=== PATIENT | male | born 1960 | race Caucasian/White ===

== ENCOUNTER 2023-09-19 11:24 | Emergency (ER) | payer OTHER, SELFPAY ==
[2023-09-19 11:28] VITALS: BP 148/76; PULSE 69; RESP 16; TEMP 36.1; O2SAT 100; BMI 25.1
--- NOTE | 2023-09-19 11:31 | DI.CT.S_ITS ---
PROCEDURE: CT KIDNEY URETER BLADDER (KUB) INDICATIONS: R FLANK PAIN, HX RENAL STONES TECHNIQUE: Axial sections were acquired from the lung bases to the pubic symphysis. Coronal and sagittal reformats were performed. For radiation dose reduction, the following was used: automated exposure control, adjustment of mA and/or kV according to patient size. COMPARISON: None. FINDINGS: Lower thorax: The lung bases are clear. Heart size normal. No hiatal hernia. Liver: 1.5 cm hepatic cysts present. No focal mass lesion Biliary system: No calcified cholelithiasis or pericholecystic inflammation. No intra or extrahepatic bile duct dilatation. Pancreas: Unremarkable without mass or inflammation evident. Spleen: Several calcified granulomas Adrenals: Normal morphology and density. Reproductive system: Unremarkable as visualized. Urinary system: 2- 3 mm nonobstructive right renal calculi present. No hydronephrosis or hydroureter bilaterally. Gastrointestinal system: The bowel is unremarkable without evidence of bowel obstruction or inflammation. The stomach appears unremarkable. Appendix: Normal appendix identified. No evidence of appendicitis. Peritoneal spaces: No mesenteric or retroperitoneal adenopathy. No free air. No free fluid. Vasculature: The IVC, aorta and iliac vasculature are unremarkable. Abdominal wall: Left inguinal hernia(s) contain fat without bowel involvement. Musculoskeletal: Normal bone mineralization. Degenerative disc disease and arthropathy noted in lower lumbar spine. No acute fractures. IMPRESSION: 1. No acute CT findings in abdomen and pelvis. 2. Nonobstructive right renal calculi. No hydronephrosis. Normal appendix. Approved by: Julio Hernandez M.D. on 09/19/2023 at 12:03
[2023-09-19] MEDS: SODIUM CHLORIDE 0.9% 1,000 ML 1000 ML IV (11:47)
[2023-09-19 11:48] LABS: Add Manual Diff / Slide Review NO; Basophils Absolute Auto 0 /uL (0-100); Basophils Percent Auto 0.3 % (0-2); Eosinophils Absolute Auto 0 /uL (0-450); Eosinophils Percent Auto 0.1 % (2-4); Hematocrit 45.5 % (41-53); Hemoglobin 15.4 g/dL (13.5-17.5); Lymphocytes Absolute Auto 900 /uL (1100-4500); Lymphocytes Percent Auto 9.9 % (25-40); Mean Corpuscular HGB Conc 33.8 % (30-36); Mean Corpuscular Hemoglobin 29.7 PG (26-34); Mean Corpuscular Volume 87.9 fL (80-100); Monocytes Absolute Auto 400 /uL (0-900); Monocytes Percent Auto 4.1 % (3-14); Neutrophils Absolute Auto 7900 /uL (1500-7000); Neutrophils Percent Auto 85.6 % (50-75); Platelet Count 197 X10^3/uL (150-400); Red Blood Cell Count 5.18 X10^6/uL (4.5-5.9); Red Cell Distribution Width 13.6 % (11.6-14.8); White Blood Cell Count 9.3 X10^3/uL (4.5-11.0)
[2023-09-19] MEDS: KETOROLAC 30 MG/ML VIAL 15 MG IV (11:48)
--- NOTE | 2023-09-19 11:50 | ED.MALEGU ---
HPI - Male Genitourinary General Chief complaint: Urogenital-Male Stated complaint: kidney stone per pt Time Seen by Provider: 09/19/23 11:31 Source: patient Mode of arrival: Ambulatory History of Present Illness HPI Narrative: 63-year-old male presents for right-sided flank pain. Patient states that he has a known history of a kidney stone and is followed by [facility]. He states that he was told it was inside the kidney and normally it does not cause him pain. Yesterday patient noticed right-sided flank pain that is consistent with his previous kidney stones. Took Tylenol at home without improvement. He has an appointment next week with Urology. Related Data Previous Rx's Medication Instructions Recorded tramadol 50 mg tablet 50 mg PO Q8H PRN pain #10 tabs 09/19/23 Allergies Allergy/AdvReac Type Severity Reaction Status Date / Time No Known Drug Allergies Allergy Verified 09/19/23 11:28 Review of Systems Review of Systems Narrative: Negative except as noted above Patient History Social History Smoking Status: Never smoker Smoking Status: Never smoker Substance Use Type: does not use Exam Initial Vital Signs Initial Vital Signs: Vital Signs Temperature 97.0 F L 09/19/23 11:28 Pulse Rate 69 09/19/23 11:28 Respiratory Rate 16 09/19/23 11:28 Blood Pressure 148/76 H 09/19/23 11:28 Pulse Oximetry 100 09/19/23 11:28 Oxygen Delivery Method Room Air 09/19/23 11:28 Const: Awake, alert, no acute distress, nontoxic appearing Cardiac: regular rate, regular rhythm RESP: unlabored, clear bilaterally, no wheezing GI: Atraumatic, soft, nontender, nondistended, no rebound, no guarding MSK: Atraumatic, full range of motion, pulses equal Skin: Warm, Dry, intact, no rashes Neuro: AO x3, CN II-XII grossly intact, moves all extremities Psych: affect normal, mood normal, not suicidal, not homicidal Course Orders Ordered: Discontinued Medications Sodium Chloride (Normal Saline 0.9%) 1,000 mls @ 1,000 mls/hr IV BOLUS ONE Stop: 09/19/23 12:30 Last Infusion: 09/19/23 12:39 Dose: Infused Documented By: Admin: 09/19/23 11:47 Dose: 1,000 mls/hr Documented By: RLS(2) Ketorolac Tromethamine (Ketorolac 30 Mg/Ml Vial) 15 mg IV NOW ONE Stop: 09/19/23 11:32 Last Admin: 09/19/23 11:48 Dose: 15 mg Documented By: RLS(2) Morphine Sulfate (Morphine 4 Mg/Ml Inj) 4 mg IV NOW ONE Stop: 09/19/23 12:26 Last Admin: 09/19/23 12:40 Dose: 4 mg Documented By: RLS Vital Signs Vital signs: Vital Signs - 8 hr 09/19/23 11:28 Temperature 97.0 F L Pulse Rate 69 Respiratory Rate 16 Blood Pressure 148/76 H Pulse Oximetry 100 Oxygen Delivery Method Room Air MDM - Male Genitourinary Differential Diagnosis Differential diagnosis: Likely urinary tract infection, prostatitis and inguinal hernia Lab Data 09/19/23 11:40 09/19/23 11:40 Labs: Lab Results 09/19/23 09/19/23 Range/Units 11:40 12:29 WBC 9.3 (4.5-11.0) X10^3/uL RBC 5.18 (4.5-5.9) X10^6/uL Hgb 15.4 (13.5-17.5) g/dL Hct 45.5 (41-53) % MCV 87.9 (80-100) fL MCH 29.7 (26-34) PG MCHC 33.8 (30-36) % RDW 13.6 (11.6-14.8) % Plt Count 197 (150-400) X10^3/uL Neut % (Auto) 85.6 H (50-75) % Lymph % (Auto) 9.9 L (25-40) % [place] % (Auto) 4.1 (3-14) % Eos % (Auto) 0.1 L (2-4) % Baso % (Auto) 0.3 (0-2) % Neut # (Auto) 7900 H (2316-9453) /uL Lymph # (Auto) 900 L (5260-4073) /uL [place] # (Auto) 400 (0-900) /uL Eos # (Auto) 0 (0-450) /uL Baso # (Auto) 0 (0-100) /uL Sodium 138 (137-145) mmol/L Potassium 4.0 (3.4-5.1) mmol/L Chloride 103 (98-107) mmol/L Carbon Dioxide 29 (22-32) mmol/L BUN 14 (9-20) mg/dL Creatinine 0.86 (0.66-1.25) mg/dL Estimated GFR > 60 (>60) mL/min BUN/Creatinine Ratio 16.3 (6-22) Glucose 89 (80-110) mg/dL Calcium 9.0 (8.4-10.2) mg/dL Total Bilirubin 0.7 (0.2-1.3) mg/dL AST 29 (17-59) IU/L ALT 24 (<50) IU/L Alkaline Phosphatase 53 (38-126) U/L Total Protein 7.2 (6.3-8.2) g/dL Albumin 4.1 (3.5-5.0) g/dL Globulin 3.1 (1.7-4.1) g/dL Albumin/Globulin Ratio 1.3 (1.0-2.8) Urine Color Yellow Urine Appearance Clear Urine pH 5.5 (4.5-8.0) Ur Specific Denio >=1.030 H (1.000-1.035) Urine Protein Negative (Negative) Urine Glucose (UA) Negative (Negative) g/dL Urine Ketones Negative (NEGATIVE) Urine Occult Blood Negative (Negative) Urine Nitrate Negative (Negative) Urine Bilirubin Negative (NEGATIVE) Urine Urobilinogen 0.2 (0.2) E.U./dL Ur Leukocyte Esterase Negative (NEGATIVE) Urine RBC None seen (0-5/HPF) Urine WBC 1-5/hpf (0-5/HPF) Ur Squamous Epith Cells 5-10 /hpf H (0-5/HPF) Urine Bacteria Occasional (0-1) (None) Ur Culture Indicated? Specimen cultured Vol Urine Centrifuged 10ml (spun) MDM Narrative Medical decision making narrative: Well-appearing patient with right-sided flank pain, known history of kidney stones, but says that his last episode was several years ago. Abdomen is soft, no significant reproducible tenderness to palpation. Laboratory work reviewed, unremarkable. CT shows no findings that explained patient's symptoms. Patient resting comfortably in bed, no acute distress. He was informed of all lab and imaging findings. Recommended close follow up with his urologist. Short course of pain medication sent to pharmacy of choice. ED return precautions discussed at bedside. Patient expressed understanding of the plan and is in agreement at this time. All questions answered at the time of discharge. Discharge Plan Departure Patient Disposition: Home Clinical Impression: Acute flank pain Instructions: DI for Flank Pain Activity Restrictions/Additional Instructions: KEEP YOUR FOLLOW-UP APPOINTMENT WITH UROLOGY AT [facility] PREVIOUSLY SCHEDULED. Prescriptions: New tramadol 50 mg tablet 50 mg PO Q8H PRN (Reason: pain) Qty: 10 0RF Stand Alone Forms: Patient Portal/API
[2023-09-19 12:08] LABS: Alanine Aminotransferase 24 IU/L (<50); Albumin 4.1 g/dL (3.5-5.0); Albumin Globulin Ratio 1.3 (1.0-2.8); Alkaline Phosphatase 53 U/L (38-126); Aspartate Aminotransferase 29 IU/L (17-59); BUN Creatinine Ratio 16.3 (6-22); Bilirubin Total 0.7 mg/dL (0.2-1.3); Blood Urea Nitrogen 14 mg/dL (9-20); Carbon Dioxide 29 mmol/L (22-32); Chloride 103 mmol/L (98-107); Estimated Glomerular Filt Rate > 60 mL/min (>60); Globulin 3.1 g/dL (1.7-4.1); Glucose 89 mg/dL (80-110); HEMOLYSIS 27 (0-50); Sodium 138 mmol/L (137-145); Total Protein 7.2 g/dL (6.3-8.2)
[2023-09-19] MEDS: MORPHINE 4 MG/ML INJ IV (12:40)
[2023-09-19 12:44] LABS: Appearance Urine UA CLEAR; Bilirubin Urine UA NEGATIVE (NEGATIVE); Color Urine UA YELLOW; Glucose Urine UA NEGATIVE (Negative); Ketones Urine UA NEGATIVE (NEGATIVE); Leukocyte Esterase Urine UA NEGATIVE (NEGATIVE); Nitrite Urine UA NEGATIVE (Negative); Occult Blood Urine UA NEGATIVE (Negative); Protein Urine UA NEGATIVE (Negative); Specific Gravity Urine UA >=1.030 (1.000-1.035); Urobilinogen Urine UA 0.2 E.U./dL (0.2); pH Urine UA 5.5 (4.5-8.0)
[2023-09-19 12:53] LABS: Urine Volume 10mL (spun)
[2023-09-19 12:54] LABS: Bacteria Urine Occasional (0-1); Culture Indicated Urine Specimen Cultured; RBC Urine None Seen (0-5/HPF); Squamous Epithelial Cell Urine 5-10 /HPF (0-5/HPF); WBC Urine 1-5/HPF (0-5/HPF)
== END 2023-09-19 14:13 | disposition home or self-care (01) ==
PROVIDERS: Emergency Provider Emergency Medicine
DX: R10.9 Unspecified abdominal pain (principal)
CPT/HCPCS: 36415; 74176; 80053; 81001; 85025; 87086; 96361; 96374; 96375; 99284; J1885; J2270